=== PATIENT | male | born 1975 | race Caucasian/White ===

== ENCOUNTER 2018-09-11 05:56 | Day surgery (SDC) | payer OTHER ==
[~2018-09-11 05:56] MED LIST: ASMANEX0.24 G1 IH; DULERA 200 MCG/13 GM IN; MOTRIN800 MG PO; SINGULAIR 10MG10 MG PO; SPIRIVA PO; SYMBICORT 16010.2 GM IH; [UNRECOGNIZED DRUG - OTHER]
== END 2018-09-11 15:45 | disposition home or self-care (01) ==
LOC: CIR.AMB 05:56
DX: I86.1 Scrotal varices (principal)